=== PATIENT | male | born 1985 | race Caucasian/White ===

== ENCOUNTER 2017-05-04 10:14 | Emergency (ER) | payer OTHER ==
[~2017-05-04] VITALS: Ht 177.8 cm; Wt 86.5 kg
[~2017-05-04 10:14] MED LIST: METH-360 PO
[2017-05-04 10:19] VITALS: BP 130/82
[2017-05-04] MEDS ORDERED: proparacaine 0.5% ophthalmic drops 15ml EACHEYE ONE (10:20)
[2017-05-04] MEDS ORDERED: benoxinate/fluorescein ophth drops 5ml bottle LEFTEYE ONE (10:20)
[2017-05-04] MEDS ORDERED: POLOS LEFTEYE (12:13)
== END 2017-05-04 12:14 | disposition left against medical advice (07) ==
LOC: ER 10:15
DX: T15.02XA Foreign body in cornea, left eye, initial encounter (principal); Z88.5 Allergy status to narcotic agent; X58.XXXA Exposure to other specified factors, initial encounter; Y93.89 Activity, other specified; Y92.89 Other specified places as the place of occurrence of the external cause; Y99.8 Other external cause status
CPT/HCPCS: 65222; 99284

== ENCOUNTER 2017-05-07 03:40 | Emergency (ER) | payer MEDICAID, OTHER ==
[~2017-05-07] VITALS: Ht 177.8 cm; Wt 89.5 kg
[~2017-05-07 03:40] MED LIST changes: +POLOS LEFTEYE
[2017-05-07] MEDS ORDERED: HYDROcodone/acetaminophen 5mg/325mg tablet PO ONE (04:45)
[2017-05-07 05:07] VITALS: BP 118/62
== END 2017-05-07 05:08 | disposition home or self-care (01) ==
LOC: ER 03:40
DX: S62.609A Fracture of unspecified phalanx of unspecified finger, initial encounter for closed fracture (principal); Z88.5 Allergy status to narcotic agent; W22.8XXA Striking against or struck by other objects, initial encounter; Y93.89 Activity, other specified; Y92.89 Other specified places as the place of occurrence of the external cause; Y99.8 Other external cause status
CPT/HCPCS: 29130; 73130; 99284

== ENCOUNTER 2017-05-20 14:04 | Outpatient (CLI) | payer MEDICAID, OTHER ==
[~2017-05-20 14:04] MED LIST changes: -POLOS LEFTEYE
[2017-05-20 14:12] VITALS: BP 127/73
== END 2017-05-20 15:05 | disposition home or self-care (01) ==
LOC: ORTHO 14:04
PROVIDERS: ATTEND Nurse Practitioner Family
DX: S62.647A Nondisplaced fracture of proximal phalanx of left little finger, initial encounter for closed fracture (principal); S63.636A Sprain of interphalangeal joint of right little finger, initial encounter; F17.210 Nicotine dependence, cigarettes, uncomplicated; F12.90 Cannabis use, unspecified, uncomplicated; Z88.5 Allergy status to narcotic agent; Z60.2 Problems related to living alone; X58.XXXA Exposure to other specified factors, initial encounter; Y93.89 Activity, other specified; Y92.89 Other specified places as the place of occurrence of the external cause; Y99.8 Other external cause status
CPT/HCPCS: 29125; 73130; 73140; 99213